=== PATIENT | female | born 1960 | race American Indian/Alaskan Native ===

== ENCOUNTER 2018-04-08 15:37 | Inpatient (IN) | payer MEDICARE ==
[2018-03-04 10:55] VITALS: BMI 31.5
--- NOTE | 2018-04-08 18:55 | CP.PCM.HP ---
History of Present Illness - History of Present Illness History of Present Illness: 58 yo female with history of MVR, AFib, DM2, HTN and HLD was transferred to [facility] from [facility] and admitted to Acute Rehab for PT/OT/ST. She was brought to ER on 04/03/18 when she woke up around midnight and unable to get up from the bed. She screamed for help but had difficulty pronouncing words and was unable to move her right arm. She recovered spontaneously by the time the EMS brought her to the ER. She was able to move her right arm and was able pronounced words. CT scan however showed left carotid stenosis and MRI showed acute infarct on the left MCA territory. Present on Admission - Present on Admission Any Indicators Present on Admission: No History of DVT/PE: No History of Uncontrolled Diabetes: No Urinary Catheter: No Decubitus Ulcer Present: No Review of Systems - Review of Systems All systems: reviewed and no additional remarkable complaints except (aside from those mentioned above, 12 point system review were negative by me) Past Patient History - Tetanus Immunizations Tetanus Immunization: Unknown - Past Medical History & Family History Past Medical History?: No - Past Social History Smoking Status: Former Smoker (quit 1PPD smoking 5 yrs ago.) Chewing Tobacco Use: No Cigar Use: No Alcohol: None Drugs: Denies Home Situation {Lives}: With Family - CARDIAC Hx Atrial Fibrillation: Yes Hx Hypertension: Yes Hx Pacemaker: No Other/Comment: had mitral valve replacement 5 yrs ago - PULMONARY Hx Respiratory Disorders: No - NEUROLOGICAL Hx Neurological Disorder: No Hx Paralysis: No - HEENT Hx HEENT Problems: No - RENAL Hx Chronic Kidney Disease: No - ENDOCRINE/METABOLIC Hx Diabetes Mellitus Type 2: Yes - HEMATOLOGICAL/ONCOLOGICAL Hx AIDS: No Hx Blood Transfusions: Yes (2012) Hx Blood Transfusion Reaction: No Hx Human Immunodeficiency Virus (HIV): No - INTEGUMENTARY Hx Dermatological Problems: No - MUSCULOSKELETAL/RHEUMATOLOGICAL Hx Musculoskeletal Disorders: Yes Hx Falls: Yes - GASTROINTESTINAL Hx Gastrointestinal Disorders: No - GENITOURINARY/GYNECOLOGICAL Hx Genitourinary Disorders: No - PSYCHIATRIC Hx Psychophysiologic Disorder: No Hx Emotional Abuse: No Hx Physical Abuse: No Hx Substance Use: No - SURGICAL HISTORY Hx Surgeries: Yes Hx Valve Replacement: Yes (MVR 5 yrs ago) - ANESTHESIA Hx Anesthesia: Yes Hx Anesthesia Reactions: No Hx Malignant Hyperthermia: No Meds Allergies/Adverse Reactions: Allergies Allergy/AdvReac Type Severity Reaction Status Date / Time No Known Allergies Allergy Verified 03/12/18 08:23 Physical Exam - Constitutional Appears: No Acute Distress - Head Exam Head Exam: ATRAUMATIC - Eye Exam Eye Exam: absent: Scleral icterus - ENT Exam ENT Exam: Mucous Membranes Moist - Neck Exam Neck exam: Negative for: Meningismus - Respiratory Exam Respiratory Exam: absent: Rales, Rhonchi, Wheezes, Respiratory Distress - Cardiovascular Exam Cardiovascular Exam: REGULAR RHYTHM, +S1, +S2 - GI/Abdominal Exam GI & Abdominal Exam: Soft. absent: Tenderness - Rectal Exam Rectal Exam: Deferred - Extremities Exam Extremities exam: Negative for: pedal edema - Neurological Exam Neurological exam: Alert, Oriented x3 - Psychiatric Exam Psychiatric exam: Normal Affect - Skin Skin Exam: Dry, Intact Results - Vital Signs Recent Vital Signs: Last Vital Signs Temp Pulse Resp 20 04/08/18 16:55 BP Pulse Ox Assessment & Plan - Assessment and Plan (Free Text) Assessment: 58 yo female with history of MVR, AFib, DM2, HTN and HLD was transferred to [facility] from [facility] and admitted to Acute Rehab for PT/OT/ST. She was brought to ER on 04/03/18 when she woke up around midnight and unable to get up from the bed. She screamed for help but had difficulty pronouncing words and was unable to move her right arm. She recovered spontaneously by the time the EMS brought her to the ER. She was able to move her right arm and was able pronounced words. CT scan however showed left carotid stenosis and MRI showed acute infarct on the left MCA territory. 1. Acute CVA physiatry consult with Dr Jacquelin HERRON, statin, BP control PT/OT/ST 2. HTN BP stable Metoprolol XL 50mg PO daily 3. AFib presently in sinus with rate controlled continue Metoprolol PT/INR in am resume Coumadin 5mg PO tomorrow 4. DM2 HgA1C, BMP in am Glipizide 5mg PO daily
[2018-04-08] MEDS: Insulin Lispro (humaLOG) 100 Units/ml Inj SC SCH (22:00)
[2018-04-09 06:18] LABS: BASO % 0.9 % (0.0-2.0); EOS # 0.1 K/uL (0.0-0.7); EOS % 2.1 % (0.0-4.0); HEMOGLOBIN 11.6 g/dL (12.0-16.0); LYMPH # 1.8 K/uL (1.0-4.3); LYMPH % 41.3 % (20.0-40.0); MEAN CELL VOLUME 83.2 fl (81.0-99.0); MEAN CORPUSCULAR HEMOGLOBIN 26.8 pg (27.0-31.0); MEAN CORPUSCULAR HGB CONC 32.3 g/dL (33.0-37.0); MEAN PLATELET VOLUME 8.9 fl (7.2-11.7); MONO # 0.7 K/uL (0.0-0.8); MONO % 16.4 % (0.0-10.0); NEUT # 1.7 K/uL (1.8-7.0); NEUT % 39.3 % (50.0-75.0); NRBC % 0.1 % (0.0-0.0); RBC 4.32 Mil/uL (3.80-5.20); RED CELL DISTRIBUTION WIDTH 15.6 % (11.5-14.5); WHITE BLOOD COUNT 4.4 K/uL (4.8-10.8)
[2018-04-09 06:38] LABS: ALB/GLOB RATIO 1.3 (1.0-2.1); ALBUMIN 3.9 g/dL (3.5-5.0); ALT/SGPT 49 U/L (9-52); AST/SGOT 66 U/L (14-36); BLOOD UREA NITROGEN 10 mg/dl (7-17); CALCIUM 9.3 mg/dL (8.4-10.2); GFR NON-AFRICAN AMERICAN > 60
[2018-04-09] MEDS: Insulin Lispro (humaLOG) 100 Units/ml Inj SC SCH ×4 (06:38→21:28)
[2018-04-09 06:39] LABS: PROTHROMBIN TIME 39.5 Seconds (9.8-13.1)
[2018-04-09 06:42] LABS: PARTIAL THROMBOPLASTIN TIME 43.4 Seconds (25.6-37.1)
[2018-04-09 07:04] LABS: INR 3.5
[2018-04-09 08:14] LABS: SQUAMOUS EPITHIAL 1 /hpf (0-5); URINE BACTERIA RARE (<OCC); URINE BILIRUBIN NEGATIVE (NEGATIVE); URINE BLOOD SMALL (NEGATIVE); URINE CLARITY SLIGHTY-CLOUDY (Clear); URINE COLOR YELLOW (YELLOW); URINE GLUCOSE (UA) NEG (Normal); URINE LEUKOCYTE ESTERASE NEG Leu/uL (Negative); URINE PROTEIN NEGATIVE (NEGATIVE); URINE UROBILINOGEN 0.2-1.0 mg/dL (0.2-1.0)
[2018-04-09] MEDS: Metoprolol Succinate 50 mg XL Tab PO SCH (08:56)
[2018-04-09] MEDS: Pantoprazole 40 mg EC Tab PO SCH (08:56)
[2018-04-09] MEDS: Sucralfate 1 gm/10 ml Oral Susp UD PO SCH ×3 (11:49→16:55)
--- NOTE | 2018-04-09 14:38 | CP.PCM.CON ---
History of Present Illness - History of Present Illness History of Present Illness: 58 year old female with diagnosis of CvA, admiited for acute rehab, with PMH of HTN, , CaBG, At FIB Review of Systems - Musculoskeletal Musculoskeletal: Abnormal Gait, Muscle Weakness - Neurological Neurological: Abnormal Gait, Weakness Past Patient History - Tetanus Immunizations Tetanus Immunization: Unknown - Past Medical History & Family History Past Medical History?: No - Past Social History Smoking Status: Former Smoker (quit 1PPD smoking 5 yrs ago.) Chewing Tobacco Use: No Cigar Use: No Alcohol: None Drugs: Denies Home Situation {Lives}: With Family - CARDIAC Hx Cardiac Disorders: Yes Hx Hypercholesterolemia: Yes Hx Hypertension: Yes - PULMONARY Hx Respiratory Disorders: No - NEUROLOGICAL Hx Neurological Disorder: No Hx Paralysis: No - HEENT Hx HEENT Problems: No - RENAL Hx Chronic Kidney Disease: No - ENDOCRINE/METABOLIC Hx Diabetes Mellitus Type 2: Yes - HEMATOLOGICAL/ONCOLOGICAL Hx AIDS: No Hx Blood Transfusions: Yes (2012) Hx Blood Transfusion Reaction: No Hx Human Immunodeficiency Virus (HIV): No - INTEGUMENTARY Hx Dermatological Problems: No - MUSCULOSKELETAL/RHEUMATOLOGICAL Hx Musculoskeletal Disorders: Yes Hx Falls: Yes - GASTROINTESTINAL Hx Gastrointestinal Disorders: No - GENITOURINARY/GYNECOLOGICAL Hx Genitourinary Disorders: No - PSYCHIATRIC Hx Psychophysiologic Disorder: No Hx Emotional Abuse: No Hx Physical Abuse: No Hx Substance Use: No - SURGICAL HISTORY Hx Surgeries: Yes Hx Valve Replacement: Yes (MVR 5 yrs ago) - ANESTHESIA Hx Anesthesia: Yes Hx Anesthesia Reactions: No Hx Malignant Hyperthermia: No Meds Allergies/Adverse Reactions: Allergies Allergy/AdvReac Type Severity Reaction Status Date / Time No Known Allergies Allergy Verified 03/12/18 08:23 - Medications Medications: Current Medications Acetaminophen (Tylenol 325mg Tab) 650 mg PO Q6 PRN PRN Reason: .Pain (4-10) Last Admin: 04/08/18 22:36 Dose: 650 mg Aspirin (Ecotrin) 81 mg PO DAILY [facility] Last Admin: 04/09/18 08:56 Dose: 81 mg Atorvastatin Calcium (Lipitor) 40 mg PO HS [facility] Last Admin: 04/08/18 21:11 Dose: 40 mg Docusate Sodium (Colace) 100 mg PO BID [facility] Last Admin: 04/09/18 08:56 Dose: 100 mg Glipizide (Glucotrol) 5 mg PO DAILY [facility] Last Admin: 04/09/18 08:56 Dose: 5 mg Insulin Human Lispro (Humalog) 0 units SC ACHS [facility] PRN Reason: Protocol Last Admin: 04/09/18 12:49 Dose: 2 units Metoprolol Succinate (Toprol Xl) 50 mg PO DAILY [facility] Last Admin: 04/09/18 08:56 Dose: 50 mg Pantoprazole Sodium (Protonix Ec Tab) 40 mg PO DAILY [facility] Last Admin: 04/09/18 08:56 Dose: 40 mg Sucralfate (Carafate Oral Susp) 1 gm PO TIDAC [facility] Last Admin: 04/09/18 12:49 Dose: 1 gm Physical Exam - Head Exam Head Exam: ATRAUMATIC, NORMAL INSPECTION, NORMOCEPHALIC - Eye Exam Eye Exam: EOMI, Normal appearance, PERRL Pupil Exam: NORMAL ACCOMODATION - ENT Exam ENT Exam: Mucous Membranes Moist, Normal Exam - Neck Exam Neck exam: Positive for: Normal Inspection - Respiratory Exam Respiratory Exam: Clear to Auscultation Bilateral, NORMAL BREATHING PATTERN - Cardiovascular Exam Cardiovascular Exam: REGULAR RHYTHM - GI/Abdominal Exam GI & Abdominal Exam: Normal Bowel Sounds - Rectal Exam Rectal Exam: NORMAL INSPECTION - Exam External exam: NORMAL EXTERNAL EXAM Additional comments: right sided weakness - Extremities Exam Extremities exam: Positive for: normal inspection - Back Exam Back exam: NORMAL INSPECTION - Neurological Exam Neurological exam: Alert, CN II-XII Intact - Psychiatric Exam Psychiatric exam: Normal Affect, Normal Mood - Skin Skin Exam: Dry, Intact, Normal Color Results - Vital Signs Recent Vital Signs: Last Vital Signs Temp 97.5 F L 04/09/18 07:47 Pulse 56 L 04/09/18 13:50 Resp 20 04/09/18 07:47 BP 145/88 04/09/18 08:56 Pulse Ox 99 04/09/18 13:50 - Labs Result Diagrams: 04/09/18 05:20 04/09/18 05:20 Labs: Laboratory Results - last 24 hr 04/08/18 04/09/18 04/09/18 20:48 05:20 05:20 WBC 4.4 L RBC 4.32 Hgb 11.6 L Hct 36.0 MCV 83.2 MCH 26.8 L MCHC 32.3 L RDW 15.6 H Plt Count 196 MPV 8.9 Neut % (Auto) 39.3 L Lymph % (Auto) 41.3 H [place] % (Auto) 16.4 H Eos % (Auto) 2.1 Baso % (Auto) 0.9 Neut # (Auto) 1.7 L Lymph # (Auto) 1.8 [place] # (Auto) 0.7 Eos # (Auto) 0.1 Baso # (Auto) 0.0 PT 39.5 H INR 3.5 APTT 43.4 H Sodium Potassium Chloride Carbon Dioxide Anion Gap BUN Creatinine Est GFR ( Amer) Est GFR (Non-Af Amer) POC Glucose (mg/dL) 251 H Random Glucose Calcium Total Bilirubin AST ALT Alkaline Phosphatase Total Protein Albumin Globulin Albumin/Globulin Ratio Urine Color Urine Clarity Urine pH Ur Specific [place] Urine Protein Urine Glucose (UA) Urine Ketones Urine Blood Urine Nitrate Urine Bilirubin Urine Urobilinogen Ur Leukocyte Esterase Urine RBC (Auto) Urine Microscopic WBC Ur Squamous Epith Cells Urine Bacteria 04/09/18 04/09/18 04/09/18 05:20 06:38 07:55 WBC RBC Hgb Hct MCV MCH MCHC RDW Plt Count MPV Neut % (Auto) Lymph % (Auto) [place] % (Auto) Eos % (Auto) Baso % (Auto) Neut # (Auto) Lymph # (Auto) [place] # (Auto) Eos # (Auto) Baso # (Auto) PT INR APTT Sodium 140 Potassium 4.3 Chloride 108 H Carbon Dioxide 24 Anion Gap 12 BUN 10 Creatinine 0.7 Est GFR ( Amer) > 60 Est GFR (Non-Af Amer) > 60 POC Glucose (mg/dL) 142 H Random Glucose 166 H Calcium 9.3 Total Bilirubin 0.8 AST 66 H ALT 49 Alkaline Phosphatase 88 Total Protein 7.0 Albumin 3.9 Globulin 3.1 Albumin/Globulin Ratio 1.3 Urine Color Yellow Urine Clarity Slighty-cloudy Urine pH 6.0 Ur Specific [place] 1.008 Urine Protein Negative Urine Glucose (UA) Neg Urine Ketones Negative Urine Blood Small Urine Nitrate Negative Urine Bilirubin Negative Urine Urobilinogen 0.2-1.0 Ur Leukocyte Esterase Neg Urine RBC (Auto) 7 H Urine Microscopic WBC 1 Ur Squamous Epith Cells 1 Urine Bacteria Rare 04/09/18 11:05 WBC RBC Hgb Hct MCV MCH MCHC RDW Plt Count MPV Neut % (Auto) Lymph % (Auto) [place] % (Auto) Eos % (Auto) Baso % (Auto) Neut # (Auto) Lymph # (Auto) [place] # (Auto) Eos # (Auto) Baso # (Auto) PT INR APTT Sodium Potassium Chloride Carbon Dioxide Anion Gap BUN Creatinine Est GFR ( Amer) Est GFR (Non-Af Amer) POC Glucose (mg/dL) 236 H Random Glucose Calcium Total Bilirubin AST ALT Alkaline Phosphatase Total Protein Albumin Globulin Albumin/Globulin Ratio Urine Color Urine Clarity Urine pH Ur Specific [place] Urine Protein Urine Glucose (UA) Urine Ketones Urine Blood Urine Nitrate Urine Bilirubin Urine Urobilinogen Ur Leukocyte Esterase Urine RBC (Auto) Urine Microscopic WBC Ur Squamous Epith Cells Urine Bacteria Assessment & Plan (1) CVA (cerebral vascular accident) Assessment and Plan: CVa alsowith diagnosis of At FIB, DM, CABG, admitted for acute rehab plan for physical, occupational, res and speech to write overall plan of care Status: Acute
--- NOTE | 2018-04-09 14:44 | PCM.OPOC ---
Physiatry Overall Plan of Care - Overall Plan of Care Estimated Length of Stay in Weeks: 3 Rehab Impairment: Mobility, Gait, Balance, Coordination Etiologic Diagnosis: Cerebrovascular Accident - Anticipated Interventions Physical Therapy:: Yes Occupational Therapy:: Yes Speech Therapy:: Yes Recreational Therapy:: Yes - Therapy Goals Bed Mobility: Independent Ambulation: Supervision Functional Positional Changes:: Independent - Functional Outcomes Functional Outcomes: fair - Discharge Plan Identification of Barriers to Discharge: Home Situation Discharge Destination: Home
--- NOTE | 2018-04-09 14:46 | CP.PCM.PN ---
Subjective - Date & Time of Evaluation Date of Evaluation: 04/09/18 Time of Evaluation: 14:00 - Subjective Subjective: no acute complaints at present Objective - Vital Signs/Intake and Output Vital Signs (last 24 hours): Temp Pulse Resp BP Pulse Ox 97.5 F L 56 L 20 145/88 99 04/09/18 07:47 04/09/18 13:50 04/09/18 07:47 04/09/18 08:56 04/09/18 13:50 - Medications Medications: Current Medications Acetaminophen (Tylenol 325mg Tab) 650 mg PO Q6 PRN PRN Reason: .Pain (4-10) Last Admin: 04/08/18 22:36 Dose: 650 mg Aspirin (Ecotrin) 81 mg PO DAILY [facility] Last Admin: 04/09/18 08:56 Dose: 81 mg Atorvastatin Calcium (Lipitor) 40 mg PO HS [facility] Last Admin: 04/08/18 21:11 Dose: 40 mg Docusate Sodium (Colace) 100 mg PO BID [facility] Last Admin: 04/09/18 08:56 Dose: 100 mg Glipizide (Glucotrol) 5 mg PO DAILY [facility] Last Admin: 04/09/18 08:56 Dose: 5 mg Insulin Human Lispro (Humalog) 0 units SC ACHS [facility] PRN Reason: Protocol Last Admin: 04/09/18 12:49 Dose: 2 units Metoprolol Succinate (Toprol Xl) 50 mg PO DAILY [facility] Last Admin: 04/09/18 08:56 Dose: 50 mg Pantoprazole Sodium (Protonix Ec Tab) 40 mg PO DAILY [facility] Last Admin: 04/09/18 08:56 Dose: 40 mg Sucralfate (Carafate Oral Susp) 1 gm PO TIDAC [facility] Last Admin: 04/09/18 12:49 Dose: 1 gm - Labs Labs: 04/09/18 05:20 04/09/18 05:20 PT 39.5 Seconds (9.8-13.1) H 04/09/18 05:20 INR 3.5 04/09/18 05:20 APTT 43.4 Seconds (25.6-37.1) H 04/09/18 05:20 - Head Exam Head Exam: ATRAUMATIC, NORMAL INSPECTION, NORMOCEPHALIC - Eye Exam Eye Exam: EOMI, Normal appearance, PERRL Pupil Exam: NORMAL ACCOMODATION - ENT Exam ENT Exam: Mucous Membranes Moist, Normal Exam - Neck Exam Neck Exam: Full ROM, Normal Inspection - Respiratory Exam Respiratory Exam: Clear to Ausculation Bilateral, NORMAL BREATHING PATTERN - Cardiovascular Exam Cardiovascular Exam: REGULAR RHYTHM - GI/Abdominal Exam GI & Abdominal Exam: Soft, Normal Bowel Sounds - Rectal Exam Rectal Exam: NORMAL INSPECTION - Exam External exam: NORMAL EXTERNAL EXAM - Extremities Exam Extremities Exam: Full ROM, Normal Capillary Refill - Back Exam Back Exam: NORMAL INSPECTION - Neurological Exam Neurological Exam: Alert, Awake Neuro motor strength exam: Right Upper Extremity: 3, Right Lower Extremity: 3 - Psychiatric Exam Psychiatric exam: Normal Affect, Normal Mood - Skin Skin Exam: Dry, Intact Assessment and Plan (1) CVA (cerebral vascular accident) Assessment & Plan: plan for physical, occupational, rec therapy program Status: Acute
[2018-04-10] MEDS: Sucralfate 1 gm/10 ml Oral Susp UD PO SCH ×3 (06:57→16:53)
[2018-04-10] MEDS: Insulin Lispro (humaLOG) 100 Units/ml Inj SC SCH ×4 (07:03→21:27)
[2018-04-10 07:24] LABS: INR 2.2; PROTHROMBIN TIME 25.2 Seconds (9.8-13.1)
[2018-04-10] MEDS: Metoprolol Succinate 50 mg XL Tab PO SCH (08:21)
[2018-04-10] MEDS: Pantoprazole 40 mg EC Tab PO SCH (08:22)
[2018-04-11] MEDS: Sucralfate 1 gm/10 ml Oral Susp UD PO SCH ×3 (06:32→16:56)
[2018-04-11] MEDS: Insulin Lispro (humaLOG) 100 Units/ml Inj SC SCH ×4 (06:43→21:25)
[2018-04-11 06:58] LABS: INR 1.8; PROTHROMBIN TIME 20.6 Seconds (9.8-13.1)
[2018-04-11] MEDS: Metoprolol Succinate 50 mg XL Tab PO SCH (08:47)
[2018-04-11] MEDS: Pantoprazole 40 mg EC Tab PO SCH (08:48)
[2018-04-11] MEDS: guaiFENesin 600 mg ER Tab PO PRN (21:23)
[2018-04-12 06:28] LABS: INR 2.3; PROTHROMBIN TIME 26.3 Seconds (9.8-13.1)
[2018-04-12] MEDS: Sucralfate 1 gm/10 ml Oral Susp UD PO SCH ×3 (06:52→15:59)
[2018-04-12] MEDS: Insulin Lispro (humaLOG) 100 Units/ml Inj SC SCH ×4 (06:53→21:03)
[2018-04-12] MEDS: Pantoprazole 40 mg EC Tab PO SCH (09:13)
[2018-04-12] MEDS: guaiFENesin 600 mg ER Tab PO PRN ×2 (09:13→21:13)
[2018-04-12] MEDS: Metoprolol Succinate 50 mg XL Tab PO SCH (09:15)
--- NOTE | 2018-04-12 13:54 | CP.PCM.PN ---
Subjective - Date & Time of Evaluation Date of Evaluation: 04/10/18 Time of Evaluation: 13:00 - Subjective Subjective: no acute complaints at present Objective - Vital Signs/Intake and Output Vital Signs (last 24 hours): Temp Pulse Resp BP Pulse Ox 97.9 F 60 18 129/86 99 04/12/18 07:50 04/12/18 09:15 04/12/18 07:50 04/12/18 09:15 04/12/18 08:46 - Medications Medications: Current Medications Acetaminophen (Tylenol 325mg Tab) 650 mg PO Q6 PRN PRN Reason: .Pain (4-10) Last Admin: 04/08/18 22:36 Dose: 650 mg Amlodipine Besylate (Norvasc) 5 mg PO DAILY [facility] Last Admin: 04/12/18 09:14 Dose: 5 mg Aspirin (Ecotrin) 81 mg PO DAILY [facility] Last Admin: 04/12/18 09:14 Dose: 81 mg Atorvastatin Calcium (Lipitor) 40 mg PO HS [facility] Last Admin: 04/11/18 21:23 Dose: 40 mg Docusate Sodium (Colace) 100 mg PO BID [facility] Last Admin: 04/12/18 09:14 Dose: 100 mg Glipizide (Glucotrol) 5 mg PO DAILY [facility] Last Admin: 04/12/18 09:14 Dose: 5 mg Guaifenesin (Mucinex [place]) 600 mg PO Q12 PRN PRN Reason: Cough and congestion Last Admin: 04/12/18 09:13 Dose: 600 mg Insulin Human Lispro (Humalog) 0 units SC ACHS [facility] PRN Reason: Protocol Last Admin: 04/12/18 12:15 Dose: 3 units Losartan Potassium (Cozaar) 50 mg PO DAILY [facility] Last Admin: 04/12/18 09:13 Dose: 50 mg Metoprolol Succinate (Toprol Xl) 50 mg PO DAILY [facility] Last Admin: 04/12/18 09:15 Dose: 50 mg Pantoprazole Sodium (Protonix Ec Tab) 40 mg PO DAILY [facility] Last Admin: 04/12/18 09:13 Dose: 40 mg Sucralfate (Carafate Oral Susp) 1 gm PO TIDAC [facility] Last Admin: 04/12/18 12:16 Dose: 1 gm Warfarin Sodium (Coumadin) 5 mg PO QD5 [facility] PRN Reason: Protocol Stop: 04/12/18 17:01 - Labs Labs: 04/09/18 05:20 04/09/18 05:20 PT 26.3 Seconds (9.8-13.1) H D 04/12/18 05:30 INR 2.3 04/12/18 05:30 APTT 43.4 Seconds (25.6-37.1) H 04/09/18 05:20 - Head Exam Head Exam: ATRAUMATIC, NORMAL INSPECTION, NORMOCEPHALIC - Eye Exam Eye Exam: EOMI, Normal appearance, PERRL Pupil Exam: NORMAL ACCOMODATION - ENT Exam ENT Exam: Mucous Membranes Moist, Normal Exam - Neck Exam Neck Exam: Full ROM, Normal Inspection - Respiratory Exam Respiratory Exam: Clear to Ausculation Bilateral, NORMAL BREATHING PATTERN - Cardiovascular Exam Cardiovascular Exam: REGULAR RHYTHM - GI/Abdominal Exam GI & Abdominal Exam: Soft, Normal Bowel Sounds - Rectal Exam Rectal Exam: NORMAL INSPECTION - Exam External exam: NORMAL EXTERNAL EXAM - Back Exam Back Exam: NORMAL INSPECTION - Neurological Exam Neurological Exam: Alert, Awake Neuro motor strength exam: Left Upper Extremity: 3, Right Upper Extremity: 3, Left Lower Extremity: 3, Right Lower Extremity: 3 - Psychiatric Exam Psychiatric exam: Normal Affect, Normal Mood - Skin Skin Exam: Dry, Normal Color Assessment and Plan (1) CVA (cerebral vascular accident) Assessment & Plan: plan for physical, occupational therapy, rec therapy for range of motion, strenghtening, transfers and gait training Status: Acute
--- NOTE | 2018-04-12 13:57 | CP.PCM.PN ---
Subjective - Date & Time of Evaluation Date of Evaluation: 04/12/18 Time of Evaluation: 11:00 - Subjective Subjective: no acute complaints of neck or back pain Objective - Vital Signs/Intake and Output Vital Signs (last 24 hours): Temp Pulse Resp BP Pulse Ox 97.9 F 60 18 129/86 99 04/12/18 07:50 04/12/18 09:15 04/12/18 07:50 04/12/18 09:15 04/12/18 08:46 - Medications Medications: Current Medications Acetaminophen (Tylenol 325mg Tab) 650 mg PO Q6 PRN PRN Reason: .Pain (4-10) Last Admin: 04/08/18 22:36 Dose: 650 mg Amlodipine Besylate (Norvasc) 5 mg PO DAILY [facility] Last Admin: 04/12/18 09:14 Dose: 5 mg Aspirin (Ecotrin) 81 mg PO DAILY [facility] Last Admin: 04/12/18 09:14 Dose: 81 mg Atorvastatin Calcium (Lipitor) 40 mg PO HS [facility] Last Admin: 04/11/18 21:23 Dose: 40 mg Docusate Sodium (Colace) 100 mg PO BID [facility] Last Admin: 04/12/18 09:14 Dose: 100 mg Glipizide (Glucotrol) 5 mg PO DAILY [facility] Last Admin: 04/12/18 09:14 Dose: 5 mg Guaifenesin (Mucinex [place]) 600 mg PO Q12 PRN PRN Reason: Cough and congestion Last Admin: 04/12/18 09:13 Dose: 600 mg Insulin Human Lispro (Humalog) 0 units SC ACHS [facility] PRN Reason: Protocol Last Admin: 04/12/18 12:15 Dose: 3 units Losartan Potassium (Cozaar) 50 mg PO DAILY [facility] Last Admin: 04/12/18 09:13 Dose: 50 mg Metoprolol Succinate (Toprol Xl) 50 mg PO DAILY [facility] Last Admin: 04/12/18 09:15 Dose: 50 mg Pantoprazole Sodium (Protonix Ec Tab) 40 mg PO DAILY [facility] Last Admin: 04/12/18 09:13 Dose: 40 mg Sucralfate (Carafate Oral Susp) 1 gm PO TIDAC [facility] Last Admin: 04/12/18 12:16 Dose: 1 gm Warfarin Sodium (Coumadin) 5 mg PO QD5 [facility] PRN Reason: Protocol Stop: 04/12/18 17:01 - Labs Labs: 04/09/18 05:20 04/09/18 05:20 PT 26.3 Seconds (9.8-13.1) H D 04/12/18 05:30 INR 2.3 04/12/18 05:30 APTT 43.4 Seconds (25.6-37.1) H 04/09/18 05:20 - Head Exam Head Exam: ATRAUMATIC, NORMAL INSPECTION, NORMOCEPHALIC - Eye Exam Eye Exam: EOMI, Normal appearance, PERRL Pupil Exam: NORMAL ACCOMODATION - ENT Exam ENT Exam: Mucous Membranes Moist, Normal Exam - Neck Exam Neck Exam: Full ROM, Normal Inspection - Respiratory Exam Respiratory Exam: Clear to Ausculation Bilateral, NORMAL BREATHING PATTERN - Cardiovascular Exam Cardiovascular Exam: REGULAR RHYTHM - GI/Abdominal Exam GI & Abdominal Exam: Soft - Rectal Exam Rectal Exam: NORMAL INSPECTION - Exam External exam: NORMAL EXTERNAL EXAM - Extremities Exam Extremities Exam: Full ROM, Normal Capillary Refill, Normal Inspection - Back Exam Back Exam: NORMAL INSPECTION - Neurological Exam Neurological Exam: Alert, Awake Neuro motor strength exam: Left Upper Extremity: 3, Right Upper Extremity: 3, Left Lower Extremity: 3, Right Lower Extremity: 3 - Psychiatric Exam Psychiatric exam: Normal Affect, Normal Mood - Skin Skin Exam: Dry, Intact Assessment and Plan (1) CVA (cerebral vascular accident) Assessment & Plan: plan for range of motion, strengthening transfers and gait training Status: Acute
--- NOTE | 2018-04-12 14:21 | CP.PCM.PN ---
Subjective - Date & Time of Evaluation Date of Evaluation: 04/12/18 Time of Evaluation: 10:00 - Subjective Subjective: Patient states that she is doing well today. Has no new complaints at present. Tolerating PT/OT well. Objective - Vital Signs/Intake and Output Vital Signs (last 24 hours): Temp Pulse Resp BP Pulse Ox 97.9 F 60 18 129/86 100 04/12/18 07:50 04/12/18 09:15 04/12/18 07:50 04/12/18 09:15 04/12/18 07:50 - Medications Medications: Current Medications Acetaminophen (Tylenol 325mg Tab) 650 mg PO Q6 PRN PRN Reason: .Pain (4-10) Last Admin: 04/08/18 22:36 Dose: 650 mg Amlodipine Besylate (Norvasc) 5 mg PO DAILY [facility] Last Admin: 04/12/18 09:14 Dose: 5 mg Aspirin (Ecotrin) 81 mg PO DAILY [facility] Last Admin: 04/12/18 09:14 Dose: 81 mg Atorvastatin Calcium (Lipitor) 40 mg PO HS [facility] Last Admin: 04/11/18 21:23 Dose: 40 mg Docusate Sodium (Colace) 100 mg PO BID [facility] Last Admin: 04/12/18 09:14 Dose: 100 mg Glipizide (Glucotrol) 5 mg PO DAILY [facility] Last Admin: 04/12/18 09:14 Dose: 5 mg Guaifenesin (Mucinex La) 600 mg PO Q12 PRN PRN Reason: Cough and congestion Last Admin: 04/12/18 09:13 Dose: 600 mg Insulin Human Lispro (Humalog) 0 units SC [facility] PRN Reason: Protocol Last Admin: 04/12/18 06:53 Dose: 1 units Losartan Potassium (Cozaar) 50 mg PO DAILY [facility] Last Admin: 04/12/18 09:13 Dose: 50 mg Metoprolol Succinate (Toprol Xl) 50 mg PO DAILY [facility] Last Admin: 04/12/18 09:15 Dose: 50 mg Pantoprazole Sodium (Protonix Ec Tab) 40 mg PO DAILY [facility] Last Admin: 04/12/18 09:13 Dose: 40 mg Sucralfate (Carafate Oral Susp) 1 gm PO TIDAC [facility] Last Admin: 04/12/18 06:52 Dose: 1 gm - Labs Labs: 04/09/18 05:20 04/09/18 05:20 PT 26.3 Seconds (9.8-13.1) H D 04/12/18 05:30 INR 2.3 04/12/18 05:30 APTT 43.4 Seconds (25.6-37.1) H 04/09/18 05:20 - Additional Findings Additional findings: Physical exam: Constitutional- cooperative, awake, alert Head- NCAT, PERRL Eye- PERRL, EOMI ENT- normal exam, MMM. Neck- normal inspection, supple, no JVD Respiratory- CTAB, no wheezes rales rhonchi Cardiovascular- RRR, +S1, +S2 no MRG GI/Abdominal- normal bowel sounds, soft, no mass, no hsm Skin- warm, dry Extremities Exam- normal capillary refill, normal inspection Neurological Exam- alert, awake, oriented Psych- normal mood, normal affect Assessment and Plan - Assessment and Plan (Free Text) Plan: 58 yo female with history of MVR, AFib, DM2, HTN and HLD was transferred to [facility] from [facility] and admitted to Acute Rehab for PT/OT/ST. She was brought to ER on 04/03/18 when she woke up around midnight and unable to get up from the bed. She screamed for help but had difficulty pronouncing words and was unable to move her right arm. She recovered spontaneously by the time the EMS brought her to the ER. She was able to move her right arm and was able pronounced words. CT scan however showed left carotid stenosis and MRI showed acute infarct on the left MCA territory. 1. Acute CVA physiatry consult with Dr Jacquelin HERRON, statin, BP control PT/OT/ST 2. HTN BP stable Metoprolol XL 50mg PO daily 3. AFib presently in sinus with rate controlled continue Metoprolol PT/INR in am resume Coumadin 5mg PO tomorrow 4. DM2 HgA1C, BMP in am Glipizide 5mg PO daily
[2018-04-13] MEDS: Sucralfate 1 gm/10 ml Oral Susp UD PO SCH ×3 (06:48→15:30)
[2018-04-13] MEDS: Insulin Lispro (humaLOG) 100 Units/ml Inj SC SCH ×4 (06:49→21:03)
[2018-04-13 06:51] LABS: INR 2.7; PROTHROMBIN TIME 30.6 Seconds (9.8-13.1)
[2018-04-13] MEDS: Pantoprazole 40 mg EC Tab PO SCH (08:21)
[2018-04-13] MEDS: Metoprolol Succinate 50 mg XL Tab PO SCH (08:21)
[2018-04-13] MEDS: guaiFENesin 600 mg ER Tab PO PRN (08:25)
[2018-04-14 06:44] LABS: INR 2.9; PROTHROMBIN TIME 33.4 Seconds (9.8-13.1)
[2018-04-14] MEDS: Sucralfate 1 gm/10 ml Oral Susp UD PO SCH ×3 (07:16→16:08)
[2018-04-14] MEDS: Insulin Lispro (humaLOG) 100 Units/ml Inj SC SCH ×4 (07:17→21:27)
[2018-04-14] MEDS: guaiFENesin 600 mg ER Tab PO PRN (08:25)
[2018-04-14] MEDS: Pantoprazole 40 mg EC Tab PO SCH (08:25)
[2018-04-14] MEDS: Metoprolol Succinate 50 mg XL Tab PO SCH (08:27)
--- NOTE | 2018-04-14 12:06 | PSY.TMCNF ---
Nursing - Vital Signs Vital Signs (Last 8 hours): Vital Signs 04/14/18 04/14/18 04/14/18 08:25 08:26 08:27 Temperature 98.3 F Pulse Rate 68 86 Respiratory 22 Rate Blood Pressure 120/83 120/63 120/63 O2 Sat by Pulse 97 Oximetry 04/14/18 08:35 Temperature 98.3 F Pulse Rate 86 Respiratory 22 Rate Blood Pressure 120/63 O2 Sat by Pulse Oximetry Pain: 0 - Precautions: Precautions: Fall Prevention - Medications/Other Issues Comment: (+) nasal congestion and non-productive cough. - Consults Comment: Dr. Adler - Toileting Toileting: Modified Independent - Bladder Management Bladder Pattern: Normal Voiding Method: Toilet Bladder Management: Modified Independent Frequency of Accidents: 0 - Bowel Management Bowel Pattern: Normal Bowel Management: Modified Independent Frequency of Accidents: 0 - Transfers Transfers: Modified Independent - ADL's ADL's: Modified Independent - Patient/Family Teaching Comments: Care post CVA and safety precautions - Goals/Time Frame Comments: Per multidiscplinary care plan ang goals - Provider Provider: Paty BANGURAN RN CRRN Physical Therapy - Bed Mobility Bed Mobility: Modified Independent - Transfers Wheelchair to Mat: Supervision Sit to Stand: Modified Independent - Ambulation Level of Assistance: Supervision Distance (ft.): 500 Assistive Devices: N/A - Stair Negotiation Stairs: Level of Assistance: Supervision, Verbal Cues Number of Stairs: 22 Handrails: Right - Standing Balance Static Stand: Modified [place] with assistive device Dynamic Stand: Supervision - Pain Pain (assessed during therapy session): 0 - Insight/Carryover Insight/Carryover: Good - Patient/Family Education Comment: CVA recovery, safety, d/c planning - Assessment/Plan Assessment: Pt is agreeable to participate in 1:1 and group recreation therapy sessions. Pt participates in word finding and direction following tasks and does well with tasks. At times, pt requires extended time for recalling facts on demand. Pt participates in all leisure tasks and tolerates duration of session. Pt will continue to benefit from participating in recreation therapy sessions throughout stay on unit. - Goals Timeframe: 5 days Goals: Sit < > supune (I). All functional transfers (I). Pt will ambulate 1000 + ft all surfaces (I). Pt will negotiate stairs mod I with handrail - Provider License Number: [id number] Occupational Therapy - Arousal/Attention/Orientation Patient Orientation: Person, Place, Time, Appropriate to Age, Appropriate to Situation - ADL/IADL Self Feeding: Set-up Help Grooming: Set-up Help Bathing-Upper Extremity: Supervision Bathing-Lower Extremity: Supervision Dressing-Upper Extremity: Set-up Help Dressing-Lower Extremity: Supervision Homemaking: Supervision - Sitting Balance Static Sitting: Independent without upper extremity support Dynamic Sitting: Reaches across midline, Reaches out of base of support, Requires supervision - Transfers Wheelchair to Bed Transfers: Supervision Toilet Transfers: Supervision Tub Transfers: Supervision - Wheelchair Management Level of Assistance: Supervision Distance (ft.): 150 - Upper Extremity Status Right Upper Extremity Comment: WFLs Left Upper Extremity Comment: WFLs - Pain Pain (assessed during therapy session): 0 - Insight/Carryover Insight/Carryover: Good - Patient/Family Education Comment: CVA recovery, safety, d/c planning - Assessment/Plan Assessment: Pt is agreeable to participate in 1:1 and group recreation therapy sessions. Pt participates in word finding and direction following tasks and does well with tasks. At times, pt requires extended time for recalling facts on demand. Pt participates in all leisure tasks and tolerates duration of session. Pt will continue to benefit from participating in recreation therapy sessions throughout stay on unit. - Goals Timeframe: 5 days Goals: Sit < > supune (I). All functional transfers (I). Pt will ambulate 1000 + ft all surfaces (I). Pt will negotiate stairs mod I with handrail - Provider Therapist: CHAO Cottrell/[facility] - Consult Information Patient on Program: Yes Medical Diagnosis: CVA Treatment Diagnosis: min-mild cognitive deficits - Assessment Memory Impairment: Mild - Plan Assessment: Pt is agreeable to participate in 1:1 and group recreation therapy sessions. Pt participates in word finding and direction following tasks and does well with tasks. At times, pt requires extended time for recalling facts on demand. Pt participates in all leisure tasks and tolerates duration of session. Pt will continue to benefit from participating in recreation therapy sessions throughout stay on unit. Plan: Continue Speech/Language Therapy - Provider Therapist: Jackelin Aranda License Number: [id number] Recreational Therapy - Participation Participation: Participates in Individual and/or Group Sessions - Attendance Attendance: 3-5 times per week - Activities Leisure Activities: Cards and Games - Socialization Level of Socialization: Initiates/interacts freely with care givers and peer - Diversional Time Diversional Time: television, has tablet in room to play games on the apps - Assessment Assessment/Plan: Pt is agreeable to participate in 1:1 and group recreation therapy sessions. Pt participates in word finding and direction following tasks and does well with tasks. At times, pt requires extended time for recalling facts on demand. Pt participates in all leisure tasks and tolerates duration of session. Pt will continue to benefit from participating in recreation therapy sessions throughout stay on unit. Problems Currently Limiting Participation: R UE weakness at times, decrease leisure awareness level Goals and Time Frame: Pt will be encouraged to participate in 1:1 and group recreation therapy sessions 3-5x week to improve leisure awareness level, arousal level, and activity tolerance level. - Provider Therapist: Malinda Bianchi, [employer] #[id number] Nutrition - Current Diet Current Diet/ Supplement/ Feedings: Moderate consistent CHO heart healthy: 2 gram Na diet - Appetite Percent Meal Consumed: 75-100% - Comments Comments: Care post CVA and safety precautions - Assessment/Goals/Time Frame Assessment/Goals/Time Frame: (+) nasal congestion and non-productive cough. - Provider Provider: Nasreen Bowers RD Case Management - Discharge Plan Discharge Plan: Home with significant other/family Rehabilitation Plan - Treatment Plan Treatment Plan: Physical Therapy, Occupational Therapy, Speech, Dietary, Patient /Family Education - Recommendation Recommendation: Physical Therapy, Occupational Therapy, Speech, Dietary, Patient /Family Education - Discharge Plan Discharge to: Home (04/15)
--- NOTE | 2018-04-14 14:20 | CP.PCM.PN ---
Subjective - Date & Time of Evaluation Date of Evaluation: 04/14/18 Time of Evaluation: 11:00 - Subjective Subjective: no acute complaints at present Objective - Vital Signs/Intake and Output Vital Signs (last 24 hours): Temp Pulse Resp BP Pulse Ox 98.3 F 86 22 120/63 97 04/14/18 08:35 04/14/18 08:35 04/14/18 08:35 04/14/18 08:35 04/14/18 08:25 - Medications Medications: Current Medications Acetaminophen (Tylenol 325mg Tab) 650 mg PO Q6 PRN PRN Reason: .Pain (4-10) Last Admin: 04/08/18 22:36 Dose: 650 mg Amlodipine Besylate (Norvasc) 5 mg PO DAILY [facility] Last Admin: 04/14/18 08:25 Dose: 5 mg Aspirin (Ecotrin) 81 mg PO DAILY [facility] Last Admin: 04/14/18 08:26 Dose: 81 mg Atorvastatin Calcium (Lipitor) 40 mg PO HS [facility] Last Admin: 04/13/18 21:03 Dose: 40 mg Docusate Sodium (Colace) 100 mg PO BID [facility] Last Admin: 04/14/18 08:26 Dose: 100 mg Glipizide (Glucotrol) 5 mg PO DAILY [facility] Last Admin: 04/14/18 08:26 Dose: 5 mg Guaifenesin (Mucinex La) 600 mg PO Q12 PRN PRN Reason: Cough and congestion Last Admin: 04/14/18 08:25 Dose: 600 mg Insulin Detemir (Levemir) 22 units SC [facility] Insulin Human Lispro (Humalog) 0 units SC [facility] PRN Reason: Protocol Last Admin: 04/14/18 12:22 Dose: 4 units Losartan Potassium (Cozaar) 50 mg PO DAILY [facility] Last Admin: 04/14/18 08:26 Dose: 50 mg Metoprolol Succinate (Toprol Xl) 50 mg PO DAILY [facility] Last Admin: 04/14/18 08:27 Dose: 50 mg Pantoprazole Sodium (Protonix Ec Tab) 40 mg PO DAILY [facility] Last Admin: 04/14/18 08:25 Dose: 40 mg Sucralfate (Carafate Oral Susp) 1 gm PO TIDAC [facility] Last Admin: 04/14/18 12:22 Dose: 1 gm Warfarin Sodium (Coumadin) 5 mg PO QD5 [facility] PRN Reason: Protocol Stop: 04/14/18 17:01 - Labs Labs: 04/09/18 05:20 04/09/18 05:20 PT 33.4 Seconds (9.8-13.1) H 04/14/18 05:15 INR 2.9 04/14/18 05:15 APTT 43.4 Seconds (25.6-37.1) H 04/09/18 05:20 - Head Exam Head Exam: ATRAUMATIC, NORMAL INSPECTION, NORMOCEPHALIC - Eye Exam Eye Exam: EOMI, Normal appearance, PERRL Pupil Exam: NORMAL ACCOMODATION - ENT Exam ENT Exam: Mucous Membranes Moist, Normal Exam - Neck Exam Neck Exam: Full ROM, Normal Inspection - Respiratory Exam Respiratory Exam: Clear to Ausculation Bilateral, NORMAL BREATHING PATTERN - Cardiovascular Exam Cardiovascular Exam: REGULAR RHYTHM - GI/Abdominal Exam GI & Abdominal Exam: Soft, Normal Bowel Sounds - Rectal Exam Rectal Exam: NORMAL INSPECTION - Exam External exam: NORMAL EXTERNAL EXAM - Extremities Exam Extremities Exam: Full ROM, Normal Capillary Refill, Normal Inspection - Back Exam Back Exam: NORMAL INSPECTION - Neurological Exam Neurological Exam: Alert, Awake Neuro motor strength exam: Left Upper Extremity: 3, Right Upper Extremity: 3, Left Lower Extremity: 3, Right Lower Extremity: 3 - Psychiatric Exam Psychiatric exam: Normal Affect, Normal Mood - Skin Skin Exam: Dry, Intact Assessment and Plan (1) CVA (cerebral vascular accident) Assessment & Plan: plan for pt, ot rec status post team conference Status: Acute
--- NOTE | 2018-04-14 15:59 | CP.PCM.PN ---
Subjective - Date & Time of Evaluation Date of Evaluation: 04/14/18 Time of Evaluation: 13:00 - Subjective Subjective: Patient seen and examined. Feeling alright and was ready to go home. Objective - Vital Signs/Intake and Output Vital Signs (last 24 hours): Temp Pulse Resp BP Pulse Ox 98.3 F 86 22 120/63 97 04/14/18 08:35 04/14/18 08:35 04/14/18 08:35 04/14/18 08:35 04/14/18 08:25 - Medications Medications: Current Medications Acetaminophen (Tylenol 325mg Tab) 650 mg PO Q6 PRN PRN Reason: .Pain (4-10) Last Admin: 04/08/18 22:36 Dose: 650 mg Amlodipine Besylate (Norvasc) 5 mg PO DAILY [facility] Last Admin: 04/14/18 08:25 Dose: 5 mg Aspirin (Ecotrin) 81 mg PO DAILY [facility] Last Admin: 04/14/18 08:26 Dose: 81 mg Atorvastatin Calcium (Lipitor) 40 mg PO [facility] Last Admin: 04/13/18 21:03 Dose: 40 mg Docusate Sodium (Colace) 100 mg PO BID [facility] Last Admin: 04/14/18 08:26 Dose: 100 mg Glipizide (Glucotrol) 5 mg PO DAILY [facility] Last Admin: 04/14/18 08:26 Dose: 5 mg Guaifenesin (Mucinex La) 600 mg PO Q12 PRN PRN Reason: Cough and congestion Last Admin: 04/14/18 08:25 Dose: 600 mg Insulin Detemir (Levemir) 22 units SC [facility] Insulin Human Lispro (Humalog) 0 units SC [facility] PRN Reason: Protocol Last Admin: 04/14/18 12:22 Dose: 4 units Losartan Potassium (Cozaar) 50 mg PO DAILY [facility] Last Admin: 04/14/18 08:26 Dose: 50 mg Metoprolol Succinate (Toprol Xl) 50 mg PO DAILY [facility] Last Admin: 04/14/18 08:27 Dose: 50 mg Pantoprazole Sodium (Protonix Ec Tab) 40 mg PO DAILY [facility] Last Admin: 04/14/18 08:25 Dose: 40 mg Sucralfate (Carafate Oral Susp) 1 gm PO TIDAC [facility] Last Admin: 04/14/18 12:22 Dose: 1 gm Warfarin Sodium (Coumadin) 5 mg PO QD5 [facility] PRN Reason: Protocol Stop: 04/14/18 17:01 - Labs Labs: 04/09/18 05:20 04/09/18 05:20 PT 33.4 Seconds (9.8-13.1) H 04/14/18 05:15 INR 2.9 04/14/18 05:15 APTT 43.4 Seconds (25.6-37.1) H 04/09/18 05:20 - Constitutional Appears: No Acute Distress - Head Exam Head Exam: ATRAUMATIC - Eye Exam Eye Exam: absent: Scleral icterus - ENT Exam ENT Exam: Mucous Membranes Moist - Neck Exam Neck Exam: absent: Meningismus - Respiratory Exam Respiratory Exam: absent: Rales, Rhonchi, Wheezes, Respiratory Distress - Cardiovascular Exam Cardiovascular Exam: REGULAR RHYTHM, +S1, +S2 - GI/Abdominal Exam GI & Abdominal Exam: Soft. absent: Tenderness - Rectal Exam Rectal Exam: Deferred - Neurological Exam Neurological Exam: Alert, Oriented x3 - Psychiatric Exam Psychiatric exam: Normal Affect - Skin Skin Exam: Dry, Intact Assessment and Plan - Assessment and Plan (Free Text) Assessment: 58 yo female with history of MVR, AFib, DM2, HTN and HLD was transferred to [facility] from [facility] and admitted to Acute Rehab for PT/OT/ST. She was brought to ER on 04/03/18 when she woke up around midnight and unable to get up from the bed. She screamed for help but had difficulty pronouncing words and was unable to move her right arm. She recovered spontaneously by the time the EMS brought her to the ER. She was able to move her right arm and was able pronounced words. CT scan however showed left carotid stenosis and MRI showed acute infarct on the left MCA territory. 1. Acute CVA ASA, statin, BP control PT/OT/ST for DC tomorrow 2. HTN BP stable Metoprolol XL 50mg PO daily 3. AFib presently in sinus with rate controlled continue Metoprolol INR: 2.9 resume Coumadin 5mg PO tomorrow 4. DM2 BS uncontrolled Glipizide 10mg PO daily
[2018-04-14 20:00] VITALS: RESP 20; O2SAT 100
[2018-04-14] MEDS ORDERED: Insulin Detemir 100 Units/ml Inj SC SCH (22:00)
[2018-04-15 06:54] LABS: INR 3.5; PROTHROMBIN TIME 40.3 Seconds (9.8-13.1)
[2018-04-15] MEDS: Sucralfate 1 gm/10 ml Oral Susp UD PO SCH ×2 (07:29→12:11)
[2018-04-15] MEDS: Insulin Lispro (humaLOG) 100 Units/ml Inj SC SCH ×2 (07:31→12:12)
[2018-04-15 08:02] VITALS: TEMP 98
[2018-04-15] MEDS: Metoprolol Succinate 50 mg XL Tab PO SCH (08:20)
[2018-04-15 08:22] VITALS: BP 126/59; PULSE 69
[2018-04-15] MEDS: Pantoprazole 40 mg EC Tab PO SCH (09:26)
--- NOTE | 2018-04-15 16:13 | CP.PCM.DIS ---
Provider - Provider Date of Admission: 04/08/18 16:35 Attending physician: Trent Victoria MD Time Spent in preparation of Discharge (in minutes): 35 Hospital Course - Lab Results Lab Results: Most Recent Lab Values WBC 4.4 K/uL (4.8-10.8) L 04/09/18 05:20 RBC 4.32 Mil/uL (3.80-5.20) 04/09/18 05:20 Hgb 11.6 g/dL (12.0-16.0) L 04/09/18 05:20 Hct 36.0 % (34.0-47.0) 04/09/18 05:20 MCV 83.2 fl (81.0-99.0) 04/09/18 05:20 MCH 26.8 pg (27.0-31.0) L 04/09/18 05:20 MCHC 32.3 g/dL (33.0-37.0) L 04/09/18 05:20 RDW 15.6 % (11.5-14.5) H 04/09/18 05:20 Plt Count 196 K/uL (130-400) 04/09/18 05:20 MPV 8.9 fl (7.2-11.7) 04/09/18 05:20 Neut % (Auto) 39.3 % (50.0-75.0) L 04/09/18 05:20 Lymph % (Auto) 41.3 % (20.0-40.0) H 04/09/18 05:20 [place] % (Auto) 16.4 % (0.0-10.0) H 04/09/18 05:20 Eos % (Auto) 2.1 % (0.0-4.0) 04/09/18 05:20 Baso % (Auto) 0.9 % (0.0-2.0) 04/09/18 05:20 Neut # (Auto) 1.7 K/uL (1.8-7.0) L 04/09/18 05:20 Lymph # (Auto) 1.8 K/uL (1.0-4.3) 04/09/18 05:20 [place] # (Auto) 0.7 K/uL (0.0-0.8) 04/09/18 05:20 Eos # (Auto) 0.1 K/uL (0.0-0.7) 04/09/18 05:20 Baso # (Auto) 0.0 K/uL (0.0-0.2) 04/09/18 05:20 PT 40.3 Seconds (9.8-13.1) H* 04/15/18 05:20 INR 3.5 04/15/18 05:20 APTT 43.4 Seconds (25.6-37.1) H 04/09/18 05:20 Sodium 140 mmol/l (132-148) 04/09/18 05:20 Potassium 4.3 MMOL/L (3.6-5.0) 04/09/18 05:20 Chloride 108 mmol/L (98-107) H 04/09/18 05:20 Carbon Dioxide 24 mmol/L (22-30) 04/09/18 05:20 Anion Gap 12 (10-20) 04/09/18 05:20 BUN 10 mg/dl (7-17) 04/09/18 05:20 Creatinine 0.7 mg/dl (0.7-1.2) 04/09/18 05:20 Est GFR ( Amer) > 60 04/09/18 05:20 Est GFR (Non-Af Amer) > 60 04/09/18 05:20 POC Glucose (mg/dL) 377 mg/dL (65-110) H 04/15/18 11:19 Random Glucose 166 mg/dL (65-105) H 04/09/18 05:20 Calcium 9.3 mg/dL (8.4-10.2) 04/09/18 05:20 Total Bilirubin 0.8 mg/dl (0.2-1.3) 04/09/18 05:20 AST 66 U/L (14-36) H 04/09/18 05:20 ALT 49 U/L (9-52) 04/09/18 05:20 Alkaline Phosphatase 88 U/L (38-126) 04/09/18 05:20 Total Protein 7.0 G/DL (6.3-8.2) 04/09/18 05:20 Albumin 3.9 g/dL (3.5-5.0) 04/09/18 05:20 Globulin 3.1 gm/dL (2.2-3.9) 04/09/18 05:20 Albumin/Globulin Ratio 1.3 (1.0-2.1) 04/09/18 05:20 Urine Color Yellow (YELLOW) 04/09/18 07:55 Urine Clarity Slighty-cloudy (Clear) 04/09/18 07:55 Urine pH 6.0 (5.0-8.0) 04/09/18 07:55 Ur Specific [place] 1.008 (1.003-1.030) 04/09/18 07:55 Urine Protein Negative mg/dL (NEGATIVE) 04/09/18 07:55 Urine Glucose (UA) Neg mg/dL (Normal) 04/09/18 07:55 Urine Ketones Negative mg/dL (NEGATIVE) 04/09/18 07:55 Urine Blood Small (NEGATIVE) 04/09/18 07:55 Urine Nitrate Negative (NEGATIVE) 04/09/18 07:55 Urine Bilirubin Negative (NEGATIVE) 04/09/18 07:55 Urine Urobilinogen 0.2-1.0 mg/dL (0.2-1.0) 04/09/18 07:55 Ur Leukocyte Esterase Neg [place]/uL (Negative) 04/09/18 07:55 Urine RBC (Auto) 7 /hpf (0-3) H 04/09/18 07:55 Urine Microscopic WBC 1 /hpf (0-5) 04/09/18 07:55 Ur Squamous Epith Cells 1 /hpf (0-5) 04/09/18 07:55 Urine Bacteria Rare (<OCC) 04/09/18 07:55 Discharge Exam - Head Exam Head Exam: ATRAUMATIC Discharge Plan - Discharge Medications Prescriptions: amLODIPine [Norvasc] 5 mg PO DAILY #30 tab Aspirin [Lo-Dose Aspirin EC] 81 mg PO DAILY #30 tablet. Docusate [Colace] 100 mg PO BID #60 cap Insulin Detemir [Levemir] 22 units SC HS #1 vial Losartan [Cozaar] 50 mg PO DAILY #30 tab Metoprolol Succinate XL [Toprol XL] 50 mg PO DAILY #30 tab Warfarin [Coumadin] 3 mg PO DAILY #30 tab - Follow Up Plan Condition: GOOD Disposition: HOME/ ROUTINE Instructions: Insulin Detemir, Stroke (DC), Vitamin K Diet, What to Do When Your INR Is Too High , Lowering the Risk of Having Another Stroke, Amlodipine, Aspirin, Atorvastatin, Docusate, Glipizide, Losartan, Metoprolol, Pantoprazole, Anti-Clotting Medicines: Warfarin (Coumadin), Sucralfate, Warfarin, Going Home on Blood Thinners , Stroke Rehab Information Referrals: Debra Arce MD [Family Provider] -
== END 2018-04-15 13:45 | disposition home or self-care (01) | DRG 57 ==
PROC: F07Z9FZ Gait Training/Functional Ambulation Treatment using Assistive, Adaptive, Supportive or Protective Equipment (ICD-10-PCS; principal; 2018-04-08)
PROC: F08Z4FZ Home Management Treatment using Assistive, Adaptive, Supportive or Protective Equipment (ICD-10-PCS; 2018-04-08)
PROC: F07K6FZ Therapeutic Exercise Treatment of Musculoskeletal System - Upper Back / Upper Extremity using Assistive, Adaptive, Supportive or Protective Equipment (ICD-10-PCS; 2018-04-09)
DX: I69.398 Other sequelae of cerebral infarction (principal); R26.89 Other abnormalities of gait and mobility; E11.9 Type 2 diabetes mellitus without complications; I48.91 Unspecified atrial fibrillation; I10 Essential (primary) hypertension; E78.5 Hyperlipidemia, unspecified; E78.00 Pure hypercholesterolemia, unspecified; Z95.2 Presence of prosthetic heart valve; Z95.1 Presence of aortocoronary bypass graft; Z79.01 Long term (current) use of anticoagulants; Z87.891 Personal history of nicotine dependence